=== PATIENT | male | born 1965 | race Caucasian/White ===

== ENCOUNTER 2024-01-27 04:56 | Emergency (ER) | payer MEDICAID, MEDICARE ==
[2024-01-27] MEDS: Methocarbamol 500 MG Tab PO ONE (05:48)
== END 2024-01-27 05:56 | disposition home or self-care (01) ==
LOC: JP.ED 04:56
DX: S39.92XA Unspecified injury of lower back, initial encounter (principal); F17.210 Nicotine dependence, cigarettes, uncomplicated; Z88.5 Allergy status to narcotic agent; Z79.899 Other long term (current) drug therapy; W19.XXXA Unspecified fall, initial encounter
CPT/HCPCS: 99283; A9270-GY